=== PATIENT | female | born 1965 | race Hispanic/Latino ===

== ENCOUNTER 2016-09-12 07:22 | Day surgery (SDC) | payer OTHER ==
[~2016-09-12] VITALS: Ht 154.9 cm; Wt 584.0 kg
[~2016-09-12 07:22] MED LIST: CYANOCOBALAM1000 MCG PO; FISH OIL 1,2001 EAC4 PO; GABAPENTIN300 MG PO; GEMFIBROZIL600 MG PO; LEVO-T25 MCG PO; LEVO-T50 MCG PO; OMEPRAZOLE20 M2 PO; PANTOPRAZOLE SO40 MG PO; RANITIDINE HCL150 M1 PO; RECTASMOOTHE30 GM TP
[2016-09-12 07:47] VITALS: BP 123/60
[2016-09-12 15:50] VITALS: BP 130/60
[2016-09-12 19:33] VITALS: BP 122/68
[2016-09-12 23:46] VITALS: BP 130/71
[2016-09-13 04:43] VITALS: BP 135/65
[2016-09-13 07:27] VITALS: BP 111/63
[2016-09-13 11:30] VITALS: BP 110/59
[2016-09-13] MEDS ORDERED: ZOFRAN4 MG PO (12:27)
[2016-09-13] MEDS ORDERED: FLEXERIL10 MG PO (12:27)
[2016-09-13 15:07] VITALS: BP 112/66
== END 2016-09-13 17:42 | disposition home or self-care (01) ==
LOC: SDC 07:22 → NUC 09:00 → 2EASTP 14:39 → 2SOUTH 14:39 → 2EASTP 16:12
DX: C50.911 Malignant neoplasm of unspecified site of right female breast (principal); E03.9 Hypothyroidism, unspecified; K21.9 Gastro-esophageal reflux disease without esophagitis
CPT/HCPCS: 78195; 78999; A9541; G0378; J0330; J0690; J1100; J1170; J1885; J2250; J2300; J2405; J2765; J3010; S0020

== ENCOUNTER 2016-09-14 16:26 | Emergency (ER) | payer OTHER ==
[~2016-09-14] VITALS: Ht 154.9 cm; Wt 84.0 kg
[~2016-09-14 16:26] MED LIST changes: +FLEXERIL10 MG PO; +ZOFRAN4 MG PO
[2016-09-14 18:10] LABS: HEMATOCRIT 30.9 % (36.0-46.0); MCH 29.1 PG (29.0-34.0); MCHC 32.4 G/DL (30.0-36.0); MCV 89.8 FL (83-99); MEAN PLAT.VOLUME 8.6 uM^3 (9.5-12.4); PLATELET COUNT 312 K/uL (156-360); RBC DIS.WIDTH-SD 48.8 % (39-53); RED BLOOD COUNT 3.44 M/uL (3.80-5.20)
[2016-09-14 18:11] LABS: WHITE BLOOD COUNT 8.9 K/uL (4.1-10.2)
[2016-09-14 18:19] LABS: CHLORIDE 106 mEq/L (99-109); SODIUM 143 mEq/L (136-147)
[2016-09-14 18:20] LABS: GLUCOSE 102 mg/dL (70-99)
[2016-09-14 18:22] LABS: ANION GAP 11 MEQ/L (2-14)
[2016-09-14 18:24] LABS: GFR ESTIMATE (CALCULATED) > 59 mL/min/
[2016-09-14 18:25] LABS: UREA NITROGEN (BUN) 14 mg/dL (9-23)
[2016-09-14 19:31] VITALS: BP 137/67
== END 2016-09-14 19:32 | disposition home or self-care (01) ==
LOC: EME 16:26
PROVIDERS: Emergency Medicine
DX: R05 Cough (principal); Z85.3 Personal history of malignant neoplasm of breast
CPT/HCPCS: 71020; 80048; 83605; 85027; 87040; 99281; 99284